=== PATIENT | female | born 1960 | race Hispanic/Latino ===

== ENCOUNTER 2016-12-30 11:36 | Emergency (ER) | payer MEDICAID, OTHER ==
[2016-12-30 11:40] VITALS: BMI 32.9
[2016-12-30 11:44] VITALS: TEMP 98.1; O2SAT 95
[2016-12-30] MEDS ORDERED: Albuterol-Ipratrop 3 mg / 0.5 (3 ml) UD IH STA (12:01)
[2016-12-30] MEDS ORDERED: Albuterol-Ipratrop 3 mg / 0.5 (3 ml) UD ONE (12:01)
--- NOTE | 2016-12-30 12:36 | ED PDOC ---
Arrival/HPI - General Chief Complaint: Cough, Cold, Congestion Time Seen by Provider: 12/30/16 12:01 Historian: Patient - History of Present Illness Narrative History of Present Illness (Text): 12/30/16 12:38 A 56 year old female, whose past medical history includes asthma, presents to the emergency department for upper respiratory infection symptoms and dry cough for the past week. Patient reports her symptoms triggered her asthma. Patient also notes she ran out of asthma pump. Reports a headache but denies any other complaints at this week. Time/Duration: 1 week Symptom Onset: Sudden Symptom Course: Unchanged Activities at Onset: Rest Context: Home Past Medical History - Provider Review Nursing Documentation Reviewed: Yes - Infectious Disease Hx of Infectious Diseases: None - Reproductive Menopause: Yes - Cardiac Hx Cardiac Disorders: No - Pulmonary Hx Respiratory Disorders: Yes Hx Asthma: Yes - Neurological Hx Neurological Disorder: No - HEENT Hx Difficulty Chewing: No - Renal Hx Neurogenic Bladder: No - Endocrine/Metabolic Hx Systemic Lupus Erythematosus: No - Hematological/Oncological Hx Blood Disorders: No - Integumentary Hx Dermatological Disorder: No - Musculoskeletal/Rheumatological Hx Musculoskeletal Disorders: No - Gastrointestinal Hx Gastrointestinal Disorders: No - Genitourinary/Gynecological Hx Genitourinary Disorders: No - Psychiatric Hx Psychophysiologic Disorder: No Hx Substance Use: No - Anesthesia Hx Anesthesia: No Family/Social History - Physician Review Nursing Documentation Reviewed: Yes Family/Social History: No Known Family HX Smoking Status: Never Smoked Hx Alcohol Use: No Hx Substance Use: No Allergies/Home Meds Allergies/Adverse Reactions: Allergies No Known Allergies Allergy (Verified 12/30/16 11:40) Home Medications: Home Meds Medication Instructions Recorded Confirmed Albuterol HFA [Ventolin HFA 90 1 puff IH PRN PRN 12/30/16 12/30/16 mcg/actuation (8 g)] Review of Systems - Physician Review All systems were reviewed & negative as marked: Yes Physical Exam - Physical Exam Narrative Physical Exam (Text): 12/30/16 12:36 - Review of Systems Constitutional: Normal. absent: Fatigue, Weight Change, Fevers Eyes: Normal ENT: sinus congestion Respiratory: cough absent: SOB, Sputum Cardiovascular: Normal absent: Chest pain, Palpitations, Syncope Gastrointestinal: Normal absent: Abdominal pain, Diarrhea, Nausea, Vomiting Genitourinary: Normal. absent: Dysuria, Frequency, Hematuria Musculoskeletal: Normal. absent: Arthralgias, Back Pain, Neck Pain Skin: Normal Neurological: headache absent: Focal Weakness Endocrine: Normal Hemo/Lymphatic: Normal Psychiatric: Normal - Physical exam Patient appears age appropriate, speaking full sentences without difficulty - Systems Exam Head: Present: Atraumatic, Normocephalic Pupils: Present: PERRL Extraocular Muscles: Present: EOMI Conjunctiva: Present: Normal Mouth: Present: Moist Mucous Membranes Neck: Present: Normal Range of Motion. No: MIDLINE TENDERNESS, Paraspinal Tenderness Respiratory/Chest: Present: expiratory wheezing No: Respiratory Distress, Accessory Muscle Use, Tachypnic Cardiovascular: Present: Regular Rate and Rhythm, Normal S1, S2, Peripheral Pulses Present. No: Murmurs Abdomen: Present: Normal Bowel Sounds, No: Tenderness, Peritoneal Signs, Rebound, Guarding, Distention Back: Present: Normal Inspection. No: Midline Tenderness, Paraspinal Tenderness Upper Extremity: Present: Normal Inspection. No: Cyanosis, Edema Lower Extremity: Present: Normal Inspection. No: Edema Neurological: Present: GCS=15, Speech Normal, cranial nerves II through XII fully intact with no cerebellar abnormality, neuro-sensory fully intact. No focal neurological deficits. Skin: Present: Warm, Dry, Normal Color. No: Rashes Lymphatic: Present: OX3, NI, NC Psychiatric: Present: Alert, Oriented x 3, Normal Insight, Normal Concentration Vital Signs Reviewed: Yes Vital Signs Temp Pulse Resp BP Pulse Ox 12/30/16 11:42 98.1 F 100 H 22 141/91 H 95 Temperature: Afebrile Blood Pressure: Hypertensive Pulse: Regular Respiratory Rate: Normal Appearance: Positive for: Well-Appearing, Non-Toxic, Comfortable Pain Distress: None Mental Status: Positive for: Alert and Oriented X 3 - Systems Exam Pharnyx: Present: Normal. No: ERYTHEMA, EXUDATE, TONSILS ENLARGED, Peritonsilar Swelling, Uvular Deviation, Muffled/Hoarse Voice, Strider, Soft Palate/Uvular Edema Medical Decision Making ED Course and Treatment: 12/30/16 12:31 Impression: A 56 year old female with URI symptoms and dry cough. On exam, patient has expiratory wheezing, and in no resp. distress. Plan: -- Duoneb -- Prednisone -- Reassess and disposition Progress Notes: 12/30/16 12:58 on reeval, pt's breath sound clear to ausc. b/l pt in no resp distress, states she feels comfortable being dc'd home at this time Pt states she understands to return to the ER right away for new or worsening symptoms or for inability to f/u with PMD or specialist as instructed. Patient states that she fully agrees with and understands discharge instructions. States that she agrees with the plan and disposition. Verbalized and repeated discharge instructions and plan. I have given the patient opportunity to ask any additional questions. - Medication Orders Current Medication Orders: Discontinued Medications Albuterol/Ipratropium (Duoneb 3 Mg/0.5 Mg (3 Ml) Ud) Confirm Administered Dose 9 ml .ROUTE .STK-MED ONE Stop: 12/30/16 12:02 Last Admin: 12/30/16 12:14 Dose: Albuterol/Ipratropium (Duoneb 3 Mg/0.5 Mg (3 Ml) Ud) 3 ml IH STAT STA Stop: 12/30/16 12:02 Last Admin: 12/30/16 12:14 Dose: 3 ml Prednisone (Prednisone Tab) 60 mg PO STAT ONE Stop: 12/30/16 12:02 Last Admin: 12/30/16 12:14 Dose: 60 mg - Scribe Statement The provider has reviewed the documentation as recorded by the Megan Mock Provider Scribe Attestation: All medical record entries made by the Scribe were at my direction and personally dictated by me. I have reviewed the chart and agree that the record accurately reflects my personal performance of the history, physical exam, medical decision making, and the department course for this patient. I have also personally directed, reviewed, and agree with the discharge instructions and disposition. Disposition/Present on Arrival - Present on Arrival Any Indicators Present on Arrival: No History of DVT/PE: No History of Uncontrolled Diabetes: No Urinary Catheter: No History of Decub. Ulcer: No History Surgical Site Infection Following: None - Disposition Have Diagnosis and Disposition been Completed?: Yes Diagnosis: Wheezing Disposition: HOME/ ROUTINE Disposition Time: 12:59 Patient Plan: Discharge Condition: GOOD Discharge Instructions (ExitCare): Wheezing (ED) Additional Instructions: PLEASE RETURN TO THE EMERGENCY DEPARTMENT FOR NEW OR WORSENING SYMPTOMS. RETURN RIGHT AWAY IF YOU CANNOT FOLLOW UP WITH YOUR PRIMARY CARE DOCTOR, CLINIC, OR SPECIALIST IN 1-2 DAYS. Prescriptions: Albuterol HFA [Ventolin HFA 90 mcg/actuation (8 g)] 2 puff IH Q4 #1 puff Azithromycin [Zithromax] 250 mg PO DAILY #6 tab Benzonatate [Tessalon Perle] 100 mg PO Q8 PRN #12 capsule PRN Reason: Cough predniSONE [predniSONE Tab] 60 mg PO DAILY #12 tab Referrals: PCP,NO [Primary Care Provider] - Follow up with primary Johnnie Lyn MD [Staff Provider] - [place] up with [place] [facility] [place] [facility] [place] - Follow up with primary
[2016-12-30 13:01] VITALS: BP 138/89; PULSE 94; RESP 18
== END 2016-12-30 13:06 | disposition home or self-care (01) ==
LOC: ED 11:36
DX: R06.2 Wheezing (principal)

== ENCOUNTER 2017-01-15 10:57 | Emergency (ER) | payer MEDICAID, OTHER ==
[2017-01-15 11:00] VITALS: BMI 33.8
[2017-01-15 11:05] VITALS: RESP 18; TEMP 98.3
[2017-01-15] MEDS ORDERED: MethylPREDNISolone 40 mg Vial IVP STA ×2 (11:14→11:37)
[2017-01-15] MEDS ORDERED: Levalbuterol 1.25 MG/3 ML Inhal Soln UD IH STA ×2 (11:14→11:59)
[2017-01-15] MEDS ORDERED: Magnesium Sulfate 1 gm in D5W 1 GM/100 ML BAG IVPB ONE (11:14)
--- NOTE | 2017-01-15 11:19 | ED PDOC ---
Arrival/HPI <GeniTico - Last Filed: 01/15/17 12:37> <Hawk Ramírez - Last Filed: 01/15/17 12:51> - General Chief Complaint: Shortness Of Breath Time Seen by Provider: 01/15/17 11:06 - History of Present Illness Narrative History of Present Illness (Text): 01/15/17 11:16 CC: SOB This patient is a 56yo F w/ a PMhx of Asthma, moderate intermittent asthma, who was previously on Advair but has since stopped taking it due to insurance reasons. She states she has an appointment at the [facility] next Friday and was hoping to get more long acting inhalers there. She has been out of them for the past year, and has since had to use her rescue inhalers 4-5 times a week, and over the past 2 days has exhausted her inhalers. She does not wake up in the middle of the night short of breath. She gets more short of breath with seasonal allergies, for which she does not take an antihistamine. She has never been intubated or hospitalized for her asthma. She denies productive sputum. She is able to speak in full sentences. She denies fevers/chills, LORA, CP, abdominal pain, N/V/D, dysuria/freq/urg, or lower extremity pain/swelling. PMD: None Pmhx: Asthma Surgeries: None FamHx: Mom with Breast CA and HTN CVA; Allergies: Seasonal Meds: Ventolin, previously Advair discus however has not taken in 1year Social: Lives at home, independent IADL ADL, denies smoking/drinking/illicit drugs 01/15/17 11:19 (Hawk Ramírez) Past Medical History - Provider Review Nursing Documentation Reviewed: Yes - Travel History Have you recently traveled outside [place] w/in the past 3 mons?: No - Infectious Disease Hx of Infectious Diseases: None - Cardiac Hx Cardiac Disorders: No - Pulmonary Hx Respiratory Disorders: Yes Hx Asthma: Yes - Neurological Hx Neurological Disorder: No - HEENT Hx Difficulty Chewing: No - Renal Hx Neurogenic Bladder: No - Endocrine/Metabolic Hx Systemic Lupus Erythematosus: No - Hematological/Oncological Hx Blood Disorders: No - Integumentary Hx Dermatological Disorder: No - Musculoskeletal/Rheumatological Hx Musculoskeletal Disorders: No - Gastrointestinal Hx Gastrointestinal Disorders: No - Genitourinary/Gynecological Hx Genitourinary Disorders: No - Psychiatric Hx Psychophysiologic Disorder: No Hx Substance Use: No - Anesthesia Hx Anesthesia: No <Hawk Ramírez - Last Filed: 01/15/17 12:51> Family/Social History - Physician Review Nursing Documentation Reviewed: Yes Family/Social History: CVA/TIA, Hypertension, Neoplasm/Cancer Smoking Status: Never Smoked Hx Alcohol Use: No Hx Substance Use: No <Hawk Ramírez - Last Filed: 01/15/17 12:51> Allergies/Home Meds <Tico Arechiga - Last Filed: 01/15/17 12:37> <Hawk Ramírez - Last Filed: 01/15/17 12:51> Allergies/Adverse Reactions: Allergies No Known Allergies Allergy (Verified 12/30/16 11:40) Home Medications: Home Meds Medication Instructions Recorded Confirmed Albuterol HFA [Ventolin HFA 90 1 puff IH PRN PRN 12/30/16 01/15/17 mcg/actuation (8 g)] Review of Systems - Physician Review All systems were reviewed & negative as marked: Yes - Review of Systems Constitutional: absent: Fatigue, Weight Change Eyes: absent: Vision Changes, Photophobia ENT: absent: Hearing Changes Respiratory: SOB, Wheezing. absent: Cough, Sputum Cardiovascular: absent: Chest Pain, Palpitations, Edema, Calf Pain Gastrointestinal: absent: Abdominal Pain, Stool Changes Genitourinary Female: absent: Dysuria, Frequency Musculoskeletal: absent: Arthralgias, Back Pain Skin: absent: Rash Neurological: absent: Headache, Dizziness Endocrine: absent: Diaphoresis, Polyuria Hemo/Lymphatic: absent: Adenopathy Psychiatric: absent: Anxiety, Depression <Hawk Ramírez - Last Filed: 01/15/17 12:51> Physical Exam Vital Signs Reviewed: Yes <Tico Arechiga - Last Filed: 01/15/17 12:37> Temperature: Afebrile Blood Pressure: Normal Pulse: Regular Respiratory Rate: Normal Appearance: Positive for: Well-Appearing, Non-Toxic, Comfortable Mental Status: Positive for: Alert and Oriented X 3 - Systems Exam Head: Present: Atraumatic, Normocephalic Pupils: Present: PERRL Extroacular Muscles: Present: EOMI Conjunctiva: Present: Normal Mouth: Present: Moist Mucous Membranes Neck: Present: Normal Range of Motion. No: Meningeal Signs Respiratory/Chest: Present: Good Air Exchange, Wheezes. No: Clear to Auscultation, Respiratory Distress, Accessory Muscle Use, Decreased Breath Sounds, Rales, Retracting, Rhonchi, Tachypneic, Tender to Palpation Cardiovascular: Present: Regular Rate and Rhythm, Normal S1, S2. No: Murmurs Abdomen: Present: Normal Bowel Sounds. No: Tenderness, Distention Upper Extremity: Present: Normal Inspection. No: Cyanosis, Edema Lower Extremity: Present: Normal Inspection. No: Edema Neurological: Present: GCS=15, CN II-XII Intact, Speech Normal (speaking in full sentences not gasping for air ) Skin: Present: Warm Psychiatric: Present: Alert, Oriented x 3 <Hawk Ramírez - Last Filed: 01/15/17 12:51> Vital Signs Temp Pulse Resp BP Pulse Ox 01/15/17 12:50 92 H 18 122/76 98 01/15/17 11:36 18 01/15/17 11:05 98.3 F 96 H 18 125/71 96 Medical Decision Making <Tico Arechiga - Last Filed: 01/15/17 12:37> <Hawk Ramírez - Last Filed: 01/15/17 12:51> ED Course and Treatment: 01/15/17 12:30 EKG: NSR @ 90; normal intervals, normal axis, no ST/T changes. Patient seen and examined with resident and came up with plan together. She was given steroids and nebs with resolution of wheezing and chest tightness associated with it. EKG is normal and other labs are unremarkable as is CXR - will d/c on steroids and albuterol and f/u pmd. (Tico Arechiga) 01/15/17 11:21 Will give Solumedrol 40, Xopenex, and Mag Sulfate Chest X-Ray, CBC CMP EKG and cardiac ISO Currently saturating at 100% on RA, speaking in full sentences, no tripoding, resting comfortably in bed Explained what a peak flow meter was and its importance during asthma attacks; she has never been educated on this previously Disposition and reassess 01/15/17 11:41 Peak flow before treatment was 300 Patient was re-educated how to use peak flow and its importance in asthma attacks patient is receiving breathing treatment chest x-ray is clear CBC WNL Will reassess 01/15/17 11:54 EKG NSR w/ poor R wave progression; otherwise unremarkable 01/15/17 12:17 Patients peak flow increased to 350 after 2 treatments patient feels better; states she would like to go home Will d/c patient with more ventolin, and steroid 40mg for 5 days Pt urged to follow up at the clinic here next week which she already has an appointment for to get long acting inhalers the patient is stable for discharge case discussed with Dr. Arechiga (Hawk Ramírez) - Lab Interpretations Lab Results: 01/15/17 11:25 01/15/17 12:00 Lab Results 01/15/17 12:00: Sodium 140, Potassium 4.5, Chloride 105, Carbon Dioxide 27, Anion Gap 13, BUN 16, Creatinine 0.8, Est GFR ( Amer) > 60, Est GFR (Non- Af Amer) > 60, Random Glucose 114 H, Calcium 9.4, Total Bilirubin 0.9, AST 20, ALT 27, Alkaline Phosphatase 89, Lactate Dehydrogenase 355, Total Creatine Kinase 42, Troponin I < 0.01, Total Protein 7.0, Albumin 3.8, Globulin 3.2, Albumin/Globulin Ratio 1.2 01/15/17 11:25: WBC 10.1, RBC 5.26, Hgb 15.2, Hct 44.9, MCV 85.4, MCH 28.9, MCHC 33.9, RDW 14.6 H, Plt Count 267, MPV 9.9, Gran % 54.4, Lymph % (Auto) 26.7 , Isabella % (Auto) 7.9 H, Eos % (Auto) 10.4 H, Baso % (Auto) 0.6, Gran # 5.48, Lymph # 2.7, Isabella # 0.8 H, Eos # 1.1 H, Baso # 0.06 - RAD Interpretation Radiology Orders: 01/15/17 11:15 CHEST PORTABLE [RAD] Stat - Medication Orders Current Medication Orders: Discontinued Medications Guaifenesin (Robitussin) 400 mg PO ONCE ONE Stop: 01/15/17 11:40 Last Admin: 01/15/17 11:46 Dose: 400 mg Magnesium Sulfate/Dextrose (Magnesium Sulfate 1 Gm/100 Ml D5w) 1 gm in 100 mls @ 100 mls/hr IVPB ONCE ONE Stop: 01/15/17 12:13 Last Admin: 01/15/17 11:39 Dose: 100 mls/hr Levalbuterol HCl (Xopenex) 1.25 mg IH STAT STA Stop: 01/15/17 11:15 Last Admin: 01/15/17 11:40 Dose: 1.25 mg Levalbuterol HCl (Xopenex) 1.25 mg IH STAT STA Stop: 01/15/17 12:00 Last Admin: 01/15/17 12:09 Dose: 1.25 mg Methylprednisolone (Solu-Medrol) 40 mg IVP STAT STA Stop: 01/15/17 11:15 Last Admin: 01/15/17 11:45 Dose: 40 mg Methylprednisolone (Solu-Medrol) 80 mg IVP STAT STA Stop: 01/15/17 11:38 Last Admin: 01/15/17 11:46 Dose: 80 mg - PA / DITCH REPAIRER / Resident Statement LUCA has reviewed & agrees with the documentation as recorded. / has examined the patient and agrees with the treatment plan. <Tico Arechiga - Last Filed: 01/15/17 12:37> Disposition/Present on Arrival <Tico Arechiga - Last Filed: 01/15/17 12:37> - Present on Arrival Any Indicators Present on Arrival: No History of DVT/PE: No History of Uncontrolled Diabetes: No Urinary Catheter: No History of Decub. Ulcer: No History Surgical Site Infection Following: None - Disposition Have Diagnosis and Disposition been Completed?: Yes Disposition Time: 12:36 <Hawk Ramírez - Last Filed: 01/15/17 12:51> - Disposition Diagnosis: Asthma attack Disposition: HOME/ ROUTINE Patient Problems: Current Active Problems Problem Status Onset Asthma attack Acute Condition: FAIR Discharge Instructions (ExitCare): Asthma (ED) Additional Instructions: Take medications as prescribed Recommend Robitussin OTC for cough Please make sure to follow up with your primary care doctor that is scheduled for here next week Return to the ED if any new concerns or symptoms Prescriptions: Albuterol HFA [Ventolin HFA 90 mcg/actuation (8 g)] 200 puff IH Q4H PRN #1 inh PRN Reason: SOB predniSONE [Prednisone] 40 mg PO DAILY #10 tab Referrals: PCP,NO [Primary Care Provider] - Follow up with primary
[2017-01-15 11:36] LABS: BASO # 0.06 K/mm3 (0.0-2.0); BASO % 0.6 % (0.0-3.0); EOS # 1.1 (0.0-0.7); EOS % 10.4 % (1.5-5.0); GRAN # 5.48 (1.4-6.5); GRAN % 54.4 % (50.0-68.0); HEMOGLOBIN 15.2 gm/dL (12.0-16.0); LYMPH # 2.7 (1.2-3.4); LYMPH % 26.7 % (22.0-35.0); MEAN CELL VOLUME 85.4 fL (80.0-105.0); MEAN CORPUSCULAR HEMOGLOBIN 28.9 pg (25.0-35.0); MEAN CORPUSCULAR HGB CONC 33.9 g/dl (31.0-37.0); MEAN PLATELET VOLUME 9.9 fl (7.0-11.0); MONO # 0.8 (0.1-0.6); MONO % 7.9 % (1.0-6.0); PLATELET COUNT 267 10^3/uL (120.0-450.0); RBC 5.26 10^6/uL (3.5-6.1); RED CELL DISTRIBUTION WIDTH 14.6 % (11.5-14.5); WHITE BLOOD COUNT 10.1 10^3/ul (4.5-11.0)
[2017-01-15] MEDS ORDERED: guaiFENesin 200 mg/10 ml Syrup UD PO ONE (11:39)
--- NOTE | 2017-01-15 11:45 | RAD ---
HISTORY: SOB COMPARISON: No prior. FINDINGS: LUNGS: No active pulmonary disease. PLEURA: No significant pleural effusion identified, no pneumothorax apparent. CARDIOVASCULAR: Normal. OSSEOUS STRUCTURES: No significant abnormalities. VISUALIZED UPPER ABDOMEN: Normal. OTHER FINDINGS: None. IMPRESSION: No active disease.
[2017-01-15 12:21] LABS: ALB/GLOB RATIO 1.2 (1.1-1.8); ALBUMIN 3.8 g/dL (3.0-4.8); ALT/SGPT 27 U/L (7-56); AST/SGOT 20 U/L (15-39); BLOOD UREA NITROGEN 16 mg/dL (7-21); CALCIUM 9.4 mg/dL (8.4-10.5); GFR AFRICAN-AMERICAN > 60; GFR NON-AFRICAN AMERICAN > 60
[2017-01-15 12:33] LABS: TROPONIN I < 0.01 ng/mL
--- NOTE | 2017-01-15 12:39 | CARD ---
APPROVED REPORT EKG Measurement Heart [id number] <Conclusion> Normal sinus rhythm Low voltage QRS Possible Inferior infarct, age undetermined Abnormal ECG
[2017-01-15 12:51] VITALS: BP 122/76; PULSE 92; O2SAT 98
== END 2017-01-15 12:51 | disposition home or self-care (01) ==
LOC: ED 10:57
DX: J45.909 Unspecified asthma, uncomplicated (principal); Z82.49 Family history of ischemic heart disease and other diseases of the circulatory system
CPT/HCPCS: 71010; 80053; 82550; 83615; 84484; 85025; 93005; 96365; 96375; 99285; J2920; J3475